=== PATIENT | female | born 1985 | race Caucasian/White ===

== ENCOUNTER → 2017-12-11 12:38 | Outpatient (CLI) | payer OTHER, SELFPAY | PROVIDERS: Family Provider Family Medicine; Visit Provider Obstetrics & Gynecology | DX: R30.0 Dysuria (principal) | CPT/HCPCS: 87086 ==

== ENCOUNTER → 2018-03-10 16:36 | Outpatient (CLI) | payer OTHER, SELFPAY ==
[2018-03-17 15:48] LABS: HPV APTIMA, High Risk Negative (Negative)
== END ==
PROVIDERS: Family Provider Family Medicine; PCP Family Medicine; Referring Provider Obstetrics & Gynecology; Visit Provider Obstetrics & Gynecology
DX: Z12.4 Encounter for screening for malignant neoplasm of cervix (principal)
CPT/HCPCS: 88175; G0145

== ENCOUNTER 2020-04-02 13:46 | Emergency (ER) | payer OTHER, SELFPAY ==
[2019-08-04 15:19] VITALS: BMI 23.3
[2020-04-02 13:49] VITALS: BP 118/67; PULSE 64; RESP 19; TEMP 36.6; O2SAT 99; BMI 27.6
--- NOTE | 2020-04-02 14:01 | ED.VIS.GEN ---
History of Present Illness Chief Complaint: Shortness of Breath Informant: Patient Narrative: Patient is a 34-year-old previously healthy female who presents to the emergency department for shortness of breath. She was diagnosed with Covid 1 week ago. She has had symptoms over the past 10 days. Yesterday and today she has felt more short of breath. She has worsened cough over this timeframe. It has been nonproductive. She has had some intermittent fevers that she is been treating at home with ibuprofen. She had a mild headache and sore throat. She denies any nausea/vomiting or change in bowel habits. No chest pain. No abdominal pain. No leg swelling. No rashes. Patient is a non-smoker. She did a teledoc visit with her PCP today who referred her to the emergency department. Past Medical History - Allergies and Home Meds Allergies/Adverse Reactions: Allergies Penicillins [PCN] Allergy (Verified 04/02/20 13:47) Hives venom-honey bee [bee venom (honey bee)] Allergy (Verified 04/02/20 13:47) Swelling Primary Care Physician: Owen Garcia DO [Primary Care Provider] - Prior records reviewed: Yes Past Medical History: None Smoking Status: Never smoker Review of Systems All systems negative except as indicated General: Reports: Chills, Fever. Denies: Sweats Eyes: Denies: Visual changes - bilaterally, Diplopia ENT: Reports: Sore throat. Denies: Rhinorrhea Cardiovascular: Denies: Chest pain, Palpitations Respiratory: Reports: Dyspnea, Cough. Denies: Sputum Gastrointestinal: Denies: Abdominal pain, Nausea, Vomiting, Diarrhea Genitourinary: Denies: Dysuria, Hematuria, Frequency Musculoskeletal: Denies: Back pain, Extremity Pain Skin: Denies: Rash, Wounds Neurological: Reports: Headache. Denies: Weakness, Numbness Physical Exam Vital Signs/Narrative: Vital Signs Temp Pulse Resp BP Pulse Ox 04/02/20 13:49 97.8 F 64 19 H 118/67 99 Inital Vital Signs reviewed: Yes General: Well nourished, Well developed, No Acute Distress Head: Normocephalic, Atraumatic Eyes: Perrl, EOMI ENT: Moist mucous membranes, No rhinorrhea Neck: Supple, Nontender Cardiovascular: Regular rate, Regular rhythm, No murmurs Respiratory: No distress, CTA bilaterally, Chest nontender Abdomen: Soft, Nontender, Nondistended, Normal bowel sounds Back: Nontender, Normal Inspection Extremities: Nontender, No edema. Negative for: Calf Tenderness Skin: Normal color, No rash Neurological: Alert, Oriented x3, Cranial nerves II-XII grossly intact, Normal Strength, Normal Sensation Psychological: Normal affect, Normal Mood Diagnostic/Tx/Re-eval - Medical Decision Making Patient presents to the emergency department for shortness of breath. She was seen by her doctor and referred to the emergency department due to the shortness of breath and being Covid positive. Upon arrival to the emergency department she is satting 99% on room air. She is not tachypneic. No increased work of breathing on physical exam. The rest of the exam is benign. Will check a chest x-ray. X-ray not show any acute consolidation. She was able to ambulate around the ED with the pulse ox when did not desaturate past 97% or becomes severely tachypneic. Will recommend symptomatic treatment at home. I did recommend she get a pulse oximeter to monitor this at home. She is to otherwise follow-up with her PCP. I did discuss return precautions with her. She understands and is agreeable this plan. Will discharge home in stable condition. All questions answered. ED Disposition - Plan for ED Patient: Disposition: Home or Assisted Living Diagnosis: COVID-19, Dyspnea Instructions: ED Dyspnea Referrals: Owen Garcia DO [Primary Care Provider] - 3-5 Days
--- NOTE | 2020-04-02 14:10 | RAD_ITS ---
STUDY: X-RAY CHEST REASON FOR EXAM: Female, 34 years old. COUGH, SOB, COVID + TECHNIQUE: Single AP portable view of the chest. COMPARISON: None. FINDINGS: Minimal increased linear markings in the left midlung. There is no demonstrated pleural abnormality. Normal size heart. Normal mediastinum and dereje. Normal visualized pulmonary arteries. Normal visualized aortic arch and descending thoracic aorta. Normal visualized thoracic spine. Normal visualized ribs, clavicles, and shoulders. There is no demonstrated abnormality of the visualized soft tissue structures of the upper abdomen. RAD/Chest 1 View (Portable) IMPRESSION: Minimal increased linear markings in the left mid lung. Electronically Signed: Daniel Novak, at 14:33 EST , Service support ,
[2020-04-02 14:30] VITALS: O2SAT 99
[2020-04-02 14:42] VITALS: O2SAT 100
[2020-04-02 15:13] VITALS: PULSE 71; RESP 18; O2SAT 99
== END 2020-04-02 15:14 | disposition home or self-care (01) ==
PROVIDERS: Emergency Provider Emergency Medicine; PCP Student in an Organized Health Care Education/Training Program
DX: U07.1 COVID-19 (principal); R06.00 Dyspnea, unspecified; Z88.0 Allergy status to penicillin
CPT/HCPCS: 71045; 99282

== ENCOUNTER → 2020-08-20 14:28 | Outpatient (CLI) | payer OTHER, SELFPAY ==
--- NOTE | 2020-08-20 14:28 | US_ITS ---
STUDY: ULTRASOUND BREAST - LEFT REASON FOR EXAM: Female, 35 years old. Pain in the lower outer quadrant of the left breast. TECHNIQUE: Axial and longitudinal images of the LEFT breast were performed with a high resolution ultrasound transducer. # OF IMAGES: 23 COMPARISON: None. FINDINGS: LEFT Breast: There are multiple dilated retroareolar ducts without definite intraductal mass. There is no abnormality in the soft tissues of the breast in the area of tenderness. There is no abnormal soft tissue tissue mass. There is no cyst formation. US/Breast Limited Unilateral IMPRESSION: There is no evidence of neoplasm. ASSESSMENT CATEGORY: BIRADS Category 2: Benign. A letter regarding these results will be sent to the patient by the facility within 30 days. Electronically Signed: Bebeto Wesley MD at 0:34 EDT Tel , Service support ,
--- NOTE | 2020-08-20 14:28 | BI_ITS ---
MAMMOGRAPHY - BILATERAL DIAGNOSTIC REASON FOR EXAM: Female, 35 years old. Left breast pain. PERTINENT HISTORY: Aunts with breast cancer. TECHNIQUE: Digital bilateral breast ольга (3D mammographic acquisition) in the CC and MLO projections. 2-D mediolateral oblique (MLO) and craniocaudad (CC) views of both breasts were obtained. CAD: Full Field Digital Mammography with Computer Added Detection was performed. COMPARISON: None. Baseline examination. FINDINGS: Breast Composition: The breasts are extremely dense, which lowers the sensitivity of mammography. There are no dominant masses or suspicious calcifications. No other significant abnormalities are identified. BI/DIAG MAMM W/CAD, BILAT IMPRESSION: Negative diagnostic mammogram. With the patient''s history of a left breast pain, correlation with ultrasound is recommended. ASSESSMENT CATEGORY: BIRADS Category 0: Incomplete. Need additional imaging evaluation. A letter regarding these results will be sent to the patient by the facility within 30 days. Approximately 10% of breast cancers are not detected by mammography. A normal mammogram should not delay biopsy of a clinically suspicious abnormality. Electronically Signed: Daniel Novak MD at 15:41 EDT , Service support ,
== END ==
PROVIDERS: PCP Student in an Organized Health Care Education/Training Program; Referring Provider Obstetrics & Gynecology; Visit Provider Obstetrics & Gynecology
DX: N64.4 Mastodynia (principal)
CPT/HCPCS: 76642; 77062; 77066; G0279

== ENCOUNTER → 2022-06-25 | Outpatient (CLI) | payer OTHER, SELFPAY ==
[2022-06-25 11:04] LABS: Estradiol 130.8 pg/mL; Follicle Stimulating Hormone 4.1 mIU/mL; Luteinizing Hormone 12.9 mIU/mL; Thyroid Stim Hormone (TSH) 0.88 uIU/mL (0.358-3.74)
[2022-06-30 12:08] LABS: Testosterone, Free 0.16 ng/dL (0.10-0.85); Testosterone, Total 18 ng/dL (8-60)
[2022-06-30 13:27] LABS: Testosterone, % Free 0.91 % (0.50-2.80)
[2022-07-01 20:32] LABS: HPV APTIMA, High Risk Negative (Negative)
== END | disposition home or self-care (01) ==
PROVIDERS: PCP Student in an Organized Health Care Education/Training Program; Referring Provider Obstetrics & Gynecology; Visit Provider Obstetrics & Gynecology
DX: Z12.4 Encounter for screening for malignant neoplasm of cervix (principal); Z13.29 Encounter for screening for other suspected endocrine disorder; R68.82 Decreased libido; N92.0 Excessive and frequent menstruation with regular cycle
CPT/HCPCS: 36415; 82670; 83001; 83002; 84402; 84403; 84443; 87624; 88175; G0145

== ENCOUNTER → 2022-08-06 | Outpatient (CLI) | payer OTHER, SELFPAY ==
--- NOTE | 2022-08-06 13:44 | US_ITS ---
EXAM: US PELVIS TRANSABDOMINAL AND TRANSVAGINAL, COMPLETE CLINICAL INDICATION: menorrhagia TECHNIQUE: Transabdominal and transvaginal pelvic ultrasound was performed with grayscale and color Doppler imaging. Transvaginal imaging was used for better evaluation of the endometrium and adnexa. This report was created using [employer] report [employer] technology. COMPARISON: None. FINDINGS: UTERUS/CERVIX: Heterogeneous uterus without discrete mass in the uterine parenchyma. 2 mm calcification adjacent to the endometrial complex which measures 5.6 mm in thickness. Uterus measures 8.2 x 4.7 x 3.7 cm. Cervix is normal. Anteverted. RIGHT OVARY: Follicles are demonstrated within both ovaries. Blood flow is demonstrated to both ovaries. No ovarian or adnexal masses and no significant free pelvic fluid. Right ovary measures 2.3 x 2.4 x 3.5 cm; left ovary measures 3.9 x 3.2 x 1.6 cm. LEFT OVARY: See above. FREE FLUID: None. BLADDER: Bladder is unremarkable. US/Pelvic (Non ) IMPRESSION: Normal endometrial complex. No findings to explain menorrhagia. Electronically Signed: Rohit Delgado MD at 3:42 EST ,
== END | disposition home or self-care (01) ==
LOC: US 13:41
PROVIDERS: PCP Student in an Organized Health Care Education/Training Program; Visit Provider Obstetrics & Gynecology
DX: N92.0 Excessive and frequent menstruation with regular cycle (principal)
CPT/HCPCS: 76830; 76856

== ENCOUNTER → 2023-07-21 | Outpatient (CLI) | payer OTHER, SELFPAY ==
--- NOTE | 2023-07-21 14:46 | BI_ITS ---
MAMMOGRAPHY - BILATERAL SCREENING REASON FOR EXAM: Female, 37 years old. Routine annual screening examination. PERTINENT HISTORY: Aunts with breast cancer. TECHNIQUE: Digital bilateral breast manolo (3D mammographic acquisition) in the CC and MLO projections. 2-D mediolateral oblique (MLO) and craniocaudad (CC) views of both breasts were obtained. CAD: Full Field Digital Mammography with Computer Added Detection was performed. COMPARISON: Comparison is made with prior study dated August 20, 2020. FINDINGS: Breast Composition: The breasts are extremely dense, which lowers the sensitivity of mammography. There are no dominant masses or suspicious calcifications. No other significant abnormalities are identified. There has been no significant change since the prior study. BI/SCRN MAMM (CAD)W/MANOLO BILAT IMPRESSION: Stable bilateral screening mammogram. Yearly follow-up mammogram recommended. (A) ASSESSMENT CATEGORY: BIRADS Category 1: Negative. A letter regarding these results will be sent to the patient by the facility within 30 days. Approximately 10% of breast cancers are not detected by mammography. A normal mammogram should not delay biopsy of a clinically suspicious abnormality. [id number] Electronically Signed: Daniel Novak MD at 15:28 EST ,
== END | disposition home or self-care (01) ==
LOC: OPBI 14:46
PROVIDERS: PCP Student in an Organized Health Care Education/Training Program; Referring Provider Obstetrics & Gynecology; Visit Provider Obstetrics & Gynecology
DX: Z12.31 Encounter for screening mammogram for malignant neoplasm of breast (principal); Z80.3 Family history of malignant neoplasm of breast
CPT/HCPCS: 77063; 77067

== ENCOUNTER → 2024-09-19 | Outpatient (CLI) | payer OTHER, SELFPAY ==
[2024-09-19 12:12] LABS: Absolute Lymphocyte Count 1.95 X10^3/uL (0.83-4.51); Absolute Neutrophil Count 2.7 X10^3/uL (2.0-7.7); Basophil# 0.03 X10^3/uL; Basophil% 0.6 % (0-1); Eosinophil# 0.12 X10^3/uL; Eosinophils% 2.3 % (0-5); Hematocrit 39.2 % (37-47); Hemoglobin 13.1 g/dL (12.0-15.0); Lymphocyte # 1.95 X10^3/ul (0.83-4.51); Lymphocyte % 37.7 % (19-41); Mean Corp Hgb Conc 33.4 g/dL (32-36); Mean Corpuscular Hgb 30.4 pg (27.0-32.0); Mean Platelet Vol. 9.9 fl (6.2-12.0); Monocyte% 7.7 % (0-10); NRBC Flagged by Analyzer 0 % (0-5); Neutrophil # 2.65 X10^3/uL (2.7-7.7); Neutrophil % 51.3 % (47-70); Platelet Count 328 K/mm3 (150-450); RBC Distribution Width CV 12.9 % (11.6-14.6); RBC Distribution Width SD 42.7 fl (35.1-43.9); Red Blood Count 4.31 M/mm3 (4.2-5.4); White Blood Count 5.2 K/mm3 (4.4-11.0)
[2024-09-19 13:24] LABS: Anion Gap 9 (5-15); BUN 13 mg/dL (4-19); BUN/Creat Ratio 16.7 RATIO (10-20); Calcium,Total 9.6 mg/dL (7.6-11.0); Carbon Dioxide 23.7 mmol/L (21.0-32.0); Chloride 106 mmol/L (98-108); Creatinine, Serum 0.76 mg/dL (0.70-1.20); EST Glomerular Filtration Rate 101 (>60); Glucose 91 mg/dL (70-99); Potassium 4.7 mmol/L (3.3-5.1); Sodium Level 139 mmol/L (133-145)
[2024-09-19 13:48] LABS: Hemoglobin A1c 5.2 % (<=5.6)
== END | disposition home or self-care (01) ==
PROVIDERS: PCP Student in an Organized Health Care Education/Training Program; Referring Provider Obstetrics & Gynecology; Visit Provider Obstetrics & Gynecology
DX: N93.9 Abnormal uterine and vaginal bleeding, unspecified (principal); E03.9 Hypothyroidism, unspecified
CPT/HCPCS: 36415; 80048; 83036; 84439; 84443; 85025

== ENCOUNTER → 2024-09-27 | Outpatient (CLI) | payer OTHER, SELFPAY ==
--- NOTE | 2024-09-27 15:05 | US_ITS ---
PROCEDURE: THYROID (USTHY), 09/27/2024 REASON FOR EXAM: HYPOTHYROID TECHNIQUE: Grayscale and color Doppler imaging of the thyroid was performed. COMPARISON: None FINDINGS: Right lobe measures 5.4 x 1.7 x 1.6cm. Essentially homogeneous background echotexture. No abnormal vascularity. No solid or mostly solid nodules are identified. Left lobe measures 4.8 x 1.4 x 1.5 cm. Essentially homogeneous background echotexture. No abnormal vascularity. No solid or mostly solid nodules are identified. Isthmus measures 2 mm in thickness. US/Thyroid IMPRESSION: 1. Assessment is TI-RADS 1: No nodules identified. 2. Normal size gland with essentially unremarkable background echotexture. No abnormal vascularity. Recommendations per ACR Thyroid Imaging, Reporting and Data System (TI-RADS): Timo hairston Paper of the ACR TI-RADS Committee, 2017 ([email or web address]) Reading Location: [id number]
== END | disposition home or self-care (01) ==
LOC: US 15:04
PROVIDERS: PCP Student in an Organized Health Care Education/Training Program; Referring Provider Obstetrics & Gynecology; Visit Provider Obstetrics & Gynecology
DX: E03.9 Hypothyroidism, unspecified (principal); N93.9 Abnormal uterine and vaginal bleeding, unspecified
CPT/HCPCS: 76536

== ENCOUNTER → 2024-09-28 | Outpatient (CLI) | payer OTHER, SELFPAY ==
--- NOTE | 2024-09-28 14:29 | US_ITS ---
PROCEDURE: PELVIC W/ TRANSVAGINAL REASON FOR EXAM: ABNORMAL UTERINE BLEEDING TECHNIQUE: Transabdominal and transvaginal pelvic ultrasound COMPARISON: Pelvic ultrasound on 08/06/2022 FINDINGS: Measurements: Uterus: 8.9 x 4.3 x 6.0 cm for volume of 122.1 mL Endometrial Thickness: 1.0 cm Right Ovary: 3.4 x 2.8 x 2.7 cm for volume of 13.6 mL Left Ovary: 2.9 x 1.4 x 2.0 cm for volume of 4.0 mL TRANSABDOMINAL: Uterus: Normal size, myometrial echotexture, and contour. Endometrium: Unremarkable. Right ovary: Normal size and echotexture. Left ovary: Normal size and echotexture. Transvaginal sonography was performed as transabdominal imaging did not explain the patient's presenting symptoms. TRANSVAGINAL: Uterus: Anteverted. Normal contour and myometrial echotexture. Nabothian cysts at the cervix. Endometrium: There are a few punctate echogenic foci which may represent microcalcifications Right ovary: Normal size and echotexture. Left ovary: Normal size and echotexture. Cul-de-sac: No free intraperitoneal fluid identified. US/Pelvic w/ Transvaginal IMPRESSION: UNREMARKABLE TRANSABDOMINAL AND TRANSVAGINAL PELVIC ULTRASOUND. Reading Location: [id number]
== END | disposition home or self-care (01) ==
LOC: US 14:28
PROVIDERS: PCP Student in an Organized Health Care Education/Training Program; Referring Provider Obstetrics & Gynecology; Visit Provider Obstetrics & Gynecology
DX: E03.9 Hypothyroidism, unspecified (principal)
CPT/HCPCS: 76830; 76856